=== PATIENT | male | born 1990 | race Caucasian/White ===

== ENCOUNTER 2019-02-09 17:48 | Emergency (ER) | payer OTHER ==
--- NOTE | 2019-02-09 17:50 | EDM.PDOC ---
ED HPI GENERAL MEDICAL PROBLEM - General Stated Complaint: CHEST PAIN Time Seen by Provider: 02/09/19 17:50 Source of Information: Reports: Patient History Limitations: Reports: No Limitations - History of Present Illness INITIAL COMMENTS - FREE TEXT/NARRATIVE: HISTORY AND PHYSICAL: History of present illness: Patient is a 28-year-old male who presents to the emergency room with complaints of generalized chest pain 2 days. He states that the pain feels like a tight squeezing sensation and gets "so bad it seizes up". He states that nothing makes the pain better or worse. Does mention concerned as he has a history of pericarditis 4 years ago. Denies any alcohol or drug abuse; although states when the chest pain started he was just getting back from [place]. He had been drinking over the weekend. Patient denies any fever, chills, headache, change in vision, syncope or near syncope. Denies any neck pain, back pain, shortness of breath or cough. Denies any abdominal pain, nausea, vomiting, diarrhea, constipation or dysuria. Patient has been eating and drinking appropriately. Review of systems: As per history of present illness and below otherwise all systems reviewed and negative. Past medical history: As per history of present illness and as reviewed below otherwise noncontributory. Surgical history: As per history of present illness and as reviewed below otherwise noncontributory. Social history: See social history for further information Family history: As per history of present illness and as reviewed below otherwise noncontributory. Physical exam: General: Well-developed and well-nourished 28-year-old male. Alert and oriented. Nontoxic appearing and in no acute distress. HEENT: Atraumatic, normocephalic, pupils equal and reactive bilaterally, negative for conjunctival pallor or scleral icterus, mucous membranes moist, TMs normal bilaterally, throat clear, neck supple, nontender, trachea midline. No drooling or trismus noted. No meningeal signs. No hot potato voice noted. Lungs: Clear to auscultation, breath sounds equal bilaterally, chest nontender. Heart: S1S2, regular rate and rhythm without overt murmur Abdomen: Soft, nondistended, nontender. Skin: Intact, warm, dry. No lesions or rashes noted. Extremities: Atraumatic, moves all extremities per self without difficulty or deficits, negative for cords or calf pain. Neurovascular unremarkable. Neuro: Awake, alert, oriented. Cranial nerves II through XII unremarkable. Cerebellum unremarkable. Motor and sensory unremarkable throughout. Exam nonfocal. Notes: EKG shows a normal sinus rhythm. No evidence of pericarditis, was reviewed with Dr. Valenzuela as well. Lab work is unremarkable. Vital signs remain stable. Supportive care measures were reviewed and discussed. Voices understanding and is agreeable to plan of care. Denies any further questions or concerns at this time. Diagnostics: CBC, BMP, CXR, EKG Therapeutics: Toradol IM Prescription: Diclofenac Impression: Chest pain, nonspecific Plan: 1. Tylenol and/or Ibuprofen as needed for pain 2. Establish/follow up with your primary care provider as we discussed 3. Return to the ED as needed and as discussed. Definitive disposition and diagnosis as appropriate pending reevaluation and review of above. chest Pain Score (Numeric/FACES): 7 - Related Data Allergies Allergy/AdvReac Type Severity Reaction Status Date / Time No Known Allergies Allergy Verified 02/09/19 17:54 Home Meds: Home Meds . [No Known Home Meds] 02/09/19 [History] ED ROS GENERAL - Review of Systems Review Of Systems: ROS reveals no pertinent complaints other than HPI. ED EXAM, GENERAL - Physical Exam Exam: See Below (See dictation) Course - Vital Signs Last Recorded V/S: Last Vital Signs Temp 96.8 F 02/09/19 17:52 Pulse 71 02/09/19 17:52 Resp 18 02/09/19 17:52 BP 108/85 02/09/19 17:52 Pulse Ox 99 02/09/19 17:52 - Orders/Labs/Meds Orders: Active Orders 24 hr Category Date Time Status EKG Documentation Completion [RC] STAT Care 02/09/19 17:49 Active Chest 2V [CR] Stat Exams 02/09/19 17:49 Taken BMP [BASIC METABOLIC PANEL,BMP] [CHEM] Stat Lab 02/09/19 18:05 Received Labs: Laboratory Tests 02/09/19 Range/Units 18:05 WBC 6.47 (4.0-11.0) K/uL RBC 5.35 (4.50-5.90) M/uL Hgb 16.3 (13.0-17.0) g/dL Hct 46.7 (38.0-50.0) % MCV 87.3 (80.0-98.0) fL MCH 30.5 (27.0-32.0) pg MCHC 34.9 (31.0-37.0) g/dL RDW Std Deviation 40.9 (28.0-62.0) fl RDW Coeff of Gonzalez 13 (11.0-15.0) % Plt Count 254 (150-400) K/uL MPV 10.40 (7.40-12.00) fL Neut % (Auto) 54.4 (48.0-80.0) % Lymph % (Auto) 35.4 (16.0-40.0) % [place] % (Auto) 6.2 (0.0-15.0) % Eos % (Auto) 3.7 (0.0-7.0) % Baso % (Auto) 0.3 (0.0-1.5) % Neut # (Auto) 3.5 (1.4-5.7) K/uL Lymph # (Auto) 2.3 (0.6-2.4) K/uL [place] # (Auto) 0.4 (0.0-0.8) K/uL Eos # (Auto) 0.2 (0.0-0.7) K/uL Baso # (Auto) 0.0 (0.0-0.1) K/uL Nucleated RBC % 0.0 /100WBC Nucleated RBCs # 0 K/uL Meds: Medications Discontinued Medications Generic Name Dose Route Start Last Admin Trade Name Freq PRN Reason Stop Dose Admin Ketorolac Tromethamine 60 mg 02/09/19 18:00 Toradol IM 02/09/19 18:01 ONETIME ONE Departure - Departure Time of Disposition: 18:30 Disposition: Home, Self-Care 01 Clinical Impression: Chest pain Qualifiers: Chest pain type: unspecified Qualified Code(s): R07.9 - Chest pain, unspecified Instructions: Nonspecific Chest Pain, [id number] Referrals: PCP,None [Primary Care Provider] - Additional Instructions: The following information is given to patients seen in the emergency department who are being discharged to home. This information is to outline your options for follow-up care. We provide all patients seen in our emergency department with a follow-up referral. The need for follow-up, as well as the timing and circumstances, are variable depending upon the specifics of your emergency department visit. If you don't have a primary care physician on staff, we will provide you with a referral. We always advise you to contact your personal physician following an emergency department visit to inform them of the circumstance of the visit and for follow-up with them and/or the need for any referrals to a consulting specialist. The emergency department will also refer you to a specialist when appropriate. This referral assures that you have the opportunity for follow-up care with a specialist. All of these measure are taken in an effort to provide you with optimal care, which includes your follow-up. Under all circumstances we always encourage you to contact your private physician who remains a resource for coordinating your care. When calling for follow-up care, please make the office aware that this follow-up is from your recent emergency room visit. If for any reason you are refused follow-up, please contact the [facility] Emergency Department at and asked to speak to the emergency department charge nurse. [facility] Primary Care [address] [place] [id number] [address] [id number] 1. Tylenol and/or Ibuprofen as needed for pain 2. Establish/follow up with your primary care provider as we discussed 3. Return to the ED as needed and as discussed. - My Orders Last 24 Hours: My Active Orders 02/09/19 17:49 EKG Documentation Completion [RC] STAT Chest 2V [CR] Stat 02/09/19 18:05 BMP [BASIC METABOLIC PANEL,BMP] [CHEM] Stat - Assessment/Plan Last 24 Hours: My Active Orders 02/09/19 17:49 EKG Documentation Completion [RC] STAT Chest 2V [CR] Stat 02/09/19 18:05 BMP [BASIC METABOLIC PANEL,BMP] [CHEM] Stat
[2019-02-09] MEDS ORDERED: Ketorolac 60 MG/2 ML SDV IM ONE (18:00)
[2019-02-09 18:28] LABS: BLOOD UREA NITROGEN,BUN 20 mg/dL (7.0-18.0); CARBON DIOXIDE,CO2 26.1 mmol/L (21.0-32.0); CHLORIDE,CL 103 mmol/L (98-107); GLUCOSE RANDOM 100 mg/dL (74-106); POTASSIUM,K 3.8 mmol/L (3.5-5.1); SODIUM,NA 139 mmol/L (136-148)
--- NOTE | 2019-02-09 18:36 | CR ---
INDICATION: Pt w/chest pain, dyspnea. TECHNIQUE: Chest 2 views. COMPARISON: 03/03/14 FINDINGS: Cardiovascular and mediastinum: Heart size and vasculature are normal in caliber and appearance. Mediastinum is within normal limits. Lungs and pleural spaces: Lungs are clear. No sign of infiltrate or mass. No sign of pleural effusion. No pneumothorax. Bones and soft tissues: No significant findings. IMPRESSION: Unremarkable chest. Dictated by: Chance Quijano MD @ 02/09/2019 18:35:34 (Electronically Signed)
== END 2019-02-09 18:53 | disposition home or self-care (01) ==
LOC: MW.ED 17:48
DX: R07.9 Chest pain, unspecified (principal)
CPT/HCPCS: 36415; 71046; 80048; 85025; 93005; 96372; 99285; J1885; 99283

== ENCOUNTER 2019-04-19 17:17 | Emergency (ER) | payer SELFPAY ==
[2019-04-19] MEDS ORDERED: Ketorolac 30 MG/ML SDV IVPUSH ONE (17:38)
[2019-04-19] MEDS ORDERED: Sodium Chloride 0.9% 2.5 ML Syringe FLUSH PRN (17:38)
[2019-04-19] MEDS ORDERED: Sodium Chloride 0.9% 1,000 ML IV ONE (17:38)
[2019-04-19] MEDS ORDERED: Sodium Chloride 0.9% 10 ML Syringe FLUSH PRN (17:38)
--- NOTE | 2019-04-19 17:48 | EDM.PDOC ---
<Lorelei Leyva - Last Filed: 04/19/19 18:53> ED HPI GENERAL MEDICAL PROBLEM - General Chief Complaint: General Stated Complaint: RT SIDE INJURY Time Seen by Provider: 04/19/19 17:29 - History of Present Illness INITIAL COMMENTS - FREE TEXT/NARRATIVE: HISTORY AND PHYSICAL: History of present illness: The patient is a healthy 29-year-old male who presents with complaints of right sided rib and upper abdominal wall tenderness after he misstepped getting out of his truck and landed onto an object along side of his truck. He says that when he fell he felt popping in his back and his ribs and he did not hit his head but he thinks he passed out from the pain or getting the wind knocked out of him. The patient denies any midline neck or back pain and says he did not impact that area but impacted his side and there is pain with movement and taking deep breaths. He has no nausea or vomiting and no extremity complaints such as weakness numbness but he said he did have some tingling with the event and his right leg which is improving. The patient did not take anything for pain prior to coming here and he has no anterior abdominal pain only in the abdomen just underneath his right rib cage. He says that there is discomfort with taking a deep breath but he is not coughing and he does not feel short of breath. Review of systems: As per history of present illness and below otherwise all systems reviewed and negative. Past medical history: As per history of present illness and as reviewed below otherwise noncontributory. Surgical history: As per history of present illness and as reviewed below otherwise noncontributory. Social history: No reported history of drug or alcohol abuse. Family history: As per history of present illness and as reviewed below otherwise noncontributory. Physical exam: General: Well-developed well-nourished man who is nontoxic and moves slowly but steadily here in the ED. Vital signs are noted by me. HEENT: Atraumatic, normocephalic, pupils reactive, negative for conjunctival pallor or scleral icterus, mucous membranes moist, throat clear, neck supple, nontender, trachea midline. There are no midline step-offs tenderness defects of the cervical spine Lungs: Clear to auscultation with some diminished breath sounds in the bases bilaterally and splinting as the patient only takes short shallow breaths,, breath sounds equal bilaterally, chest wall at the anterior axillary line in the lower ribs has tenderness extending both anteriorly and posteriorly but not to the midline back and there is some faint bruising seen in this region but no crepitus no erythema and no soft tissue swelling. When I palpate this area does reproduce the patient's pain Heart: S1S2, regular, negative for clicks, rubs, or JVD. Abdomen: Soft, nondistended, bowel sounds are slightly hypoactive and there is no tympany. There is minimal to mild tenderness on deep palpation of the lower rib cage and the right upper quadrant but there is no CVA tenderness. Negative for masses or hepatosplenomegaly. Pelvis: Stable nontender. Genitourinary: Deferred. Rectal: Deferred. Extremities: Atraumatic, negative for cords or calf pain. Neurovascular unremarkable. Full Range of motion of all extremities defects or deficits and no soft tissue swelling is appreciated. Neuro: Awake, alert, oriented. Cranial nerves II through XII unremarkable. Cerebellum unremarkable. Motor and sensory unremarkable throughout. Exam nonfocal. Back: There are no midline step-offs tendency defects of the thoracic or lumbar spine but there is some posterior rib tenderness at the posterior axillary line and extending slightly area from that but not at the articulation of the ribs with the spinous processes. There is no other ecchymosis erythema or soft tissue swelling seen other than as described above a chest exam. There is no posterior pelvis tenderness defects or deformities Diagnostics: CBC CMP UA with reflex CT scan of the chest abdomen and pelvis Therapeutics: IV fluids Toradol Impression: Right chest wall/abdominal wall contusion status post blunt trauma Definitive disposition and diagnosis as appropriate pending reevaluation and review of above. rt side Pain Score (Numeric/FACES): 9 - Related Data Allergies Allergy/AdvReac Type Severity Reaction Status Date / Time No Known Allergies Allergy Verified 04/19/19 17:30 Home Meds: Home Meds . [No Known Home Meds] 04/19/19 [History] Past Medical History HEENT History: Reports: None Cardiovascular History: Reports: None, Afib, Other (See Below) Other Cardiovascular History: percaritis Respiratory History: Reports: None Gastrointestinal History: Reports: Other (See Below) Other Gastrointestinal History: colitis Genitourinary History: Reports: None Musculoskeletal History: Reports: None Neurological History: Reports: None Psychiatric History: Reports: None Endocrine/Metabolic History: Reports: None Hematologic History: Reports: None Immunologic History: Reports: None Oncologic (Cancer) History: Reports: None Dermatologic History: Reports: None - Infectious Disease History Infectious Disease History: Reports: Chicken Pox - Past Surgical History Head Surgeries/Procedures: Reports: None HEENT Surgical History: Reports: None Cardiovascular Surgical History: Reports: None Respiratory Surgical History: Reports: None GI Surgical History: Reports: None Male Surgical History: Reports: None Endocrine Surgical History: Reports: None Neurological Surgical History: Reports: None Musculoskeletal Surgical History: Reports: None Oncologic Surgical History: Reports: None Dermatological Surgical History: Reports: None Social & Family History - Family History Family Medical History: Noncontributory - Tobacco Use Smoking Status *Q: Never Smoker - Caffeine Use Caffeine Use: Reports: Energy Drinks - Recreational Drug Use Recreational Drug Use: No ED ROS GENERAL - Review of Systems Review Of Systems: ROS reveals no pertinent complaints other than HPI. ED EXAM, GENERAL - Physical Exam Exam: See Below (see dictation) Course - Vital Signs Last Recorded V/S: Last Vital Signs Temp 36.7 C 04/19/19 17:28 Pulse 73 04/19/19 19:14 Resp 12 04/19/19 19:14 BP 114/77 04/19/19 19:14 Pulse Ox 97 04/19/19 19:14 - Orders/Labs/Meds Orders: Active Orders 24 hr Category Date Time Status Sodium Chloride 0.9% [Saline Flush] Med 04/19/19 17:38 Active 10 ml FLUSH ASDIRECTED PRN Sodium Chloride 0.9% [Saline Flush] Med 04/19/19 17:38 Active 2.5 ml FLUSH ASDIRECTED PRN Saline Lock Insert [OM.PC] Stat Oth 04/19/19 17:37 Ordered Medication Orders Sodium Chloride (Saline Flush) 10 ml FLUSH ASDIRECTED PRN PRN Reason: Keep Vein Open Last Admin: 04/19/19 18:03 Dose: 10 ml Sodium Chloride (Saline Flush) 2.5 ml FLUSH ASDIRECTED PRN PRN Reason: Keep Vein Open Last Admin: 04/19/19 18:03 Dose: 2.5 ml Labs: Laboratory Tests 04/19/19 04/19/19 04/19/19 Range/Units 17:45 17:50 17:50 WBC 7.83 (4.0-11.0) K/uL RBC 5.72 (4.50-5.90) M/uL Hgb 17.5 H (13.0-17.0) g/dL Hct 49.7 (38.0-50.0) % MCV 86.9 (80.0-98.0) fL MCH 30.6 (27.0-32.0) pg MCHC 35.2 (31.0-37.0) g/dL RDW Std Deviation 40.1 (28.0-62.0) fl RDW Coeff of Gonzalez 13 (11.0-15.0) % Plt Count 258 (150-400) K/uL MPV 10.60 (7.40-12.00) fL Neut % (Auto) 55.7 (48.0-80.0) % Lymph % (Auto) 32.8 (16.0-40.0) % [place] % (Auto) 7.9 (0.0-15.0) % Eos % (Auto) 3.3 (0.0-7.0) % Baso % (Auto) 0.3 (0.0-1.5) % Neut # (Auto) 4.4 (1.4-5.7) K/uL Lymph # (Auto) 2.6 H (0.6-2.4) K/uL [place] # (Auto) 0.6 (0.0-0.8) K/uL Eos # (Auto) 0.3 (0.0-0.7) K/uL Baso # (Auto) 0.0 (0.0-0.1) K/uL Nucleated RBC % 0.0 /100WBC Nucleated RBCs # 0 K/uL Sodium 139 (136-148) mmol/L Potassium 3.7 (3.5-5.1) mmol/L Chloride 103 (98-107) mmol/L Carbon Dioxide 27.0 (21.0-32.0) mmol/L BUN 14 (7.0-18.0) mg/dL Creatinine 1.2 (0.8-1.3) mg/dL Est Cr Clr Drug Dosing 86.45 mL/min Estimated GFR (MDRD) > 60.0 ml/min Glucose 145 H (74-106) mg/dL Calcium 8.8 (8.5-10.1) mg/dL Total Bilirubin 0.6 (0.2-1.0) mg/dL AST 33 (15-37) IU/L ALT 37 (14-63) IU/L Alkaline Phosphatase 95 (46-116) U/L Total Protein 7.8 (6.4-8.2) g/dL Albumin 4.0 (3.4-5.0) g/dL Globulin 3.8 (2.6-4.0) g/dL Albumin/Globulin Ratio 1.1 (0.9-1.6) Urine Color YELLOW Urine Appearance CLEAR Urine pH 8.5 H (5.0-8.0) Ur Specific [place] 1.015 (1.001-1.035) Urine Protein NEGATIVE (NEGATIVE) mg/dL Urine Glucose (UA) NEGATIVE (NEGATIVE) mg/dL Urine Ketones NEGATIVE (NEGATIVE) mg/dL Urine Occult Blood SMALL H (NEGATIVE) Urine Nitrite NEGATIVE (NEGATIVE) Urine Bilirubin NEGATIVE (NEGATIVE) Urine Urobilinogen 0.2 (<2.0) EU/dL Ur Leukocyte Esterase NEGATIVE (NEGATIVE) Urine RBC 3-6 (0-2/HPF) Urine WBC 0-2 (0-5/HPF) Ur Epithelial Cells RARE (NONE-FEW) Urine Bacteria RARE (NEGATIVE) Meds: Medications Generic Name Dose Route Start Last Admin Trade Name Frecelso PRN Reason Stop Dose Admin Sodium Chloride 10 ml 04/19/19 17:38 04/19/19 18:03 Saline Flush FLUSH 10 ml ASDIRECTED PRN Administration Keep Vein Open Sodium Chloride 2.5 ml 04/19/19 17:38 04/19/19 18:03 Saline Flush FLUSH 2.5 ml ASDIRECTED PRN Administration Keep Vein Open Discontinued Medications Generic Name Dose Route Start Last Admin Trade Name Frecelso PRN Reason Stop Dose Admin Sodium Chloride 1,000 mls @ 999 mls/hr 04/19/19 17:38 04/19/19 18:02 Normal Saline IV 04/19/19 18:38 999 mls/hr STAT ONE Administration Iopamidol 80 ml 04/19/19 18:57 04/19/19 18:57 Isovue Multipack-370 (76%) IVPUSH 04/19/19 18:58 80 ml ONETIME STA Administration Ketorolac Tromethamine 30 mg 04/19/19 17:38 04/19/19 18:02 Toradol IVPUSH 04/19/19 17:39 30 mg ONETIME ONE Administration Departure - Departure Time of Disposition: 19:20 Disposition: Home, Self-Care 01 Condition: Good Clinical Impression: Chest wall contusion Qualifiers: Encounter type: initial encounter Laterality: right Qualified Code(s): S20.211A - Contusion of right front wall of thorax, initial encounter Abdominal wall contusion Qualifiers: Encounter type: initial encounter Qualified Code(s): S30.1XXA - Contusion of abdominal wall, initial encounter - Discharge Information Referrals: PCP,Unknown [Primary Care Provider] - Forms: ED Department Discharge Additional Instructions: The following information is given to patients seen in the emergency department who are being discharged to home. This information is to outline your options for follow-up care. We provide all patients seen in our emergency department with a follow-up referral. The need for follow-up, as well as the timing and circumstances, are variable depending upon the specifics of your emergency department visit. If you don't have a primary care physician on staff, we will provide you with a referral. We always advise you to contact your personal physician following an emergency department visit to inform them of the circumstance of the visit and for follow-up with them and/or the need for any referrals to a consulting specialist. The emergency department will also refer you to a specialist when appropriate. This referral assures that you have the opportunity for followup care with a specialist. All of these measure are taken in an effort to provide you with optimal care, which includes your followup. Under all circumstances we always encourage you to contact your private physician who remains a resource for coordinating your care. When calling for followup care, please make the office aware that this follow-up is from your recent emergency room visit. If for any reason you are refused follow-up, please contact the [facility] emergency department at and ask to speak to the emergency department charge nurse. [facility] Primary care- Internal Medicine and Family [address] [address] Use ice to all areas of pain and swelling for the first 24 hours and then on muscles of your back switch to heat but any bony injuries and pain continue to use ice. Use medication as you choose , [id number] Tylenol or ibuprofen. Expect aches and pains for the next several days to one week. Please call and schedule a follow-up appointment with one of our providers in the clinic or your provider for reevaluation and further care and return to ER as needed and as discussed <Mario Valenzuela - Last Filed: 04/19/19 19:57> Course - Vital Signs Text/Narrative:: Patient emergency department course has been unremarkable CT of his chest abdomen pelvis remarkable for a T7 compression fracture with no evidence of retropulsion patient has no pain in this area and denies any trauma in this area or prior trauma. Patient was informed of his compression fracture the need for routine follow-up.
[2019-04-19 18:23] LABS: BLOOD UREA NITROGEN,BUN 14 mg/dL (7.0-18.0); CHLORIDE,CL 103 mmol/L (98-107); GLUCOSE RANDOM 145 mg/dL (74-106); POTASSIUM,K 3.7 mmol/L (3.5-5.1); SODIUM,NA 139 mmol/L (136-148)
[2019-04-19] MEDS ORDERED: Iopamidol 755 MG/ML 500 ML Multipack Bottle IVPUSH STA (18:57)
--- NOTE | 2019-04-19 19:41 | CT ---
Indication: Right upper quadrant blunt trauma. Fell from truck and landed right side on guard renal. Technique: Multiple contiguous axial images were obtained from the lung bases through the symphysis pubis after the intravenous administration of 80 milliliters Isovue 370. Please note that all CT scans at this facility use dose modulation, iterative reconstruction, and/or weight-based dosing when appropriate to reduce radiation dose to as low as reasonably achievable. Comparison: ComparisonNone Findings: Heart is normal in size. No pericardial effusions identified. The liver, gallbladder, spleen, adrenals, and kidneys are normal. No intrahepatic biliary ductal dilatation is identified. Within the medial aspect of the spleen, there is minimal heterogeneity, but no definite laceration is identified. No perisplenic free fluid is identified. In the pelvis, the urinary bladder is normal. The prostate gland is normal. The small and large bowel are normal in caliber. No free air or free fluid is identified within the abdomen or pelvis. The aorta is normal in caliber. Both femoral heads are seated within the acetabula. No pelvic fractures are identified. The alignment of the lumbar spine is within normal limits. No free air or free fluid is identified within the abdomen or pelvis. The aorta is normal in caliber. No displaced rib fractures are identified. Impression: No evidence of injury of the abdomen or pelvis. Please note that all CT scans at this facility use dose modulation, iterative reconstruction, and/or weight-based dosing when appropriate to reduce radiation dose to as low as reasonably achievable. Dictated by Margie Flores MD @ Apr 19 2019 7:26PM Signed by Dr. Margie Flores @ Apr 19 2019 7:39PM
--- NOTE | 2019-04-19 19:45 | CT ---
Indication: Right upper quadrant blunt trauma. Fell from a truck and landed on the right side undergo drill. Technique: Multiple contiguous axial images were obtained from the thoracic inlet through the upper abdomen after the intravenous administration of 80 milliliters Isovue [address] Please note that all CT scans at this facility use dose modulation, iterative reconstruction, and/or weight-based dosing when appropriate to reduce radiation dose to as low as reasonably achievable. Comparison: None Findings: The heart is normal in size. The aorta is normal in caliber. There is no evidence of aortic dissection. No mediastinal, hilar, or axillary lymphadenopathy is identified. The visualized portions of the unenhanced liver, spleen, gallbladder, pancreas, adrenals, and kidneys are normal. No intrahepatic biliary ductal dilatation is identified. No hydronephrosis is identified. Both humeral heads are seated within the glenoid. No displaced rib fractures are identified. Compression of T6 is identified, of uncertain chronicity. No retropulsed fracture fragments are identified. This results in loss of vertebral body height of approximately 40 percent. The lungs are clear. No infiltrate, pleural effusion, or pneumothorax is identified. Impression: Compression of T6, uncertain chronicity. These findings were discussed with Dr. Singleton at the time of this dictation. Please note that all CT scans at this facility use dose modulation, iterative reconstruction, and/or weight-based dosing when appropriate to reduce radiation dose to as low as reasonably achievable. Dictated by Margie Flores MD @ Apr 19 2019 7:26PM Signed by Dr. Margie Flores @ Apr 19 2019 7:44PM
== END 2019-04-19 20:11 | disposition home or self-care (01) ==
LOC: MW.ED 17:17
DX: S20.211A Contusion of right front wall of thorax, initial encounter (principal); S30.1XXA Contusion of abdominal wall, initial encounter; W17.89XA Other fall from one level to another, initial encounter
CPT/HCPCS: 36415; 71260; 74177; 80053; 81001; 85025; 96361; 96374; 99284; J1885; J7040; Q9967